=== PATIENT | male | born 1960 | race Caucasian/White ===

== ENCOUNTER 2016-11-15 20:26 | Emergency (ER) | payer BC ==
[2016-11-15 20:39] VITALS: BP 163/95
[2016-11-15] MEDS ORDERED: diphenhydrAMINE 50 MG Cap PO ONE (21:14)
[2016-11-15] MEDS ORDERED: Acetaminophen/oxyCODONE 325-5 MG Tab PO ONE (21:15)
[2016-11-15] MEDS ORDERED: Ibuprofen 600 MG Tab PO ONE (21:15)
[2016-11-15] MEDS ORDERED: Dexamethasone 2 MG Tab PO ONE (21:16)
--- NOTE | 2016-11-15 21:17 | EDM.PDOC ---
ED HPI GENERAL MEDICAL PROBLEM - General Chief Complaint: Bite:Animal, Insect Stated Complaint: BEE STING ON LIP Time Seen by Provider: 11/15/16 21:10 Source of Information: Reports: Patient History Limitations: Reports: No Limitations - History of Present Illness INITIAL COMMENTS - FREE TEXT/NARRATIVE: 56-year-old male presents the ED for evaluation of allergic reaction after being stung by a bee or wasp in his right upper lip. States the hymenoptera was inside a pop can and when he went to take a drink he was stung he believes multiple times in the upper lip. This would suggest a wasp versus a bee sting. Sting occurred approximately 2 hours prior to arrival he has no other signs or symptoms of allergic reaction such as trouble swallowing or breathing. He has no generalized itch itches localized to the upper lip which is markedly swollen. Onset: Today Onset Date: 11/15/16 Onset Time: 19:00 Duration: Hour(s): Location: Reports: Face Quality: Reports: Ache (Upper lip.), Pressure, Throbbing, Other Severity: Severe (Itching.) Improves with: Reports: None Worsens with: Reports: None Context: Denies: Activity, Exercise, Lifting, Sick Contact, Trauma, Other Associated Symptoms: Reports: No Other Symptoms Treatments [employer]: Reports: Other (see below) (None) Upper Lip Pain Score (Numeric/FACES): 6 - Related Data Allergies Allergy/AdvReac Type Severity Reaction Status Date / Time No Known Allergies Allergy Verified 11/15/16 20:37 Home Meds: Home Meds Blood Pressure Pill 11/15/16 [History] Past Medical History - Past Health History Medical/Surgical History: Denies Medical/Surgical History Cardiovascular History: Reports: Hypertension Social & Family History - Tobacco Use Smoking Status *Q: Current Every Day Smoker Years of Tobacco use: 30 Packs/Tins Daily: 1 ED ROS GENERAL - Review of Systems Review Of Systems: See Below Constitutional: Reports: No Symptoms HEENT: Reports: Other (Marked swelling and itching of his entire upper lip.) Respiratory: Reports: Shortness of Breath (Chronic cough from smoking.), Wheezing ( Exertion), Cough Cardiovascular: Reports: Blood Pressure Problem (Mild hypertension), Dyspnea on Exertion ( occasional wheezing chronically ) Endocrine: Reports: No Symptoms GI/Abdominal: Reports: No Symptoms : Reports: Frequency, Other Musculoskeletal: Reports: Back Pain Skin: Reports: No Symptoms Neurological: Reports: No Symptoms (Occasional problems with low back pain) Psychiatric: Reports: No Symptoms Hematologic/Lymphatic: Reports: No Symptoms ED EXAM, ANIMAL BITE - Physical Exam Exam: See Below Exam Limited By: No Limitations General Appearance: Alert, WD/WN, No Apparent Distress, Other Eye Exam: Bilateral Eye: Normal Inspection Throat/Mouth: Normal Inspection, Normal Lips, Normal Oropharynx, Other (Entire right upper lip is markedly swollen and edematous.) Head: Atraumatic, Normocephalic (Oropharynx is erythematous from cigarette smoking but no swelling of the uvula or soft palate it is evident.) Neck: Normal Inspection, Supple, Non-Tender, Full Range of Motion. No: Lymphadenopathy (L), Lymphadenopathy (R) Respiratory/Chest: No Respiratory Distress, No Accessory Muscle Use, Wheezing Cardiovascular: Normal Peripheral Pulses, Regular Rate, Rhythm, No Edema, No Gallop, No Murmur (Timoteo expiratory wheezing.) Course - Vital Signs Last Recorded V/S: Last Vital Signs Temp 36.4 C 11/15/16 20:37 Pulse 87 11/15/16 20:37 Resp 16 11/15/16 20:37 BP 163/95 H 11/15/16 20:37 Pulse Ox 95 11/15/16 20:37 - Radiology Interpretation Free Text/Narrative:: 56-year-old male presents the ED after being stung he believes multiple times by a bee or wasp in his upper lip. States he went to take a drink out of a pop can and the hymenoptera was inside the can. The fact that he was stung more than one suggests it was a wasp rather than a bee. At any rate he has a localized reaction to his right upper lip with it being markedly swollen and edematous. He has no signs or symptoms of systemic allergic response. Sting occurred approximately 2 hours prior to arrival. Plan Benadryl 50 Chester grams by mouth Percocet 1 tablet 5-25 mg by mouth with Motrin 600 mg by mouth and dexamethasone 10 mg by mouth 1 dose. Departure - Departure Time of Disposition: 21:23 Disposition: Home, Self-Care 01 Condition: Fair Clinical Impression: Sting from hornet, wasp, or bee Qualifiers: Encounter type: initial encounter Injury intent: accidental or unintentional Qualified Code(s): T63.451A - Toxic effect of venom of hornets, accidental ( unintentional), initial encounter; T63.441A - Toxic effect of venom of bees, accidental (unintentional), initial encounter; T63.461A - Toxic effect of venom of wasps, accidental (unintentional), initial encounter - Discharge Information Forms: ED Department Discharge Additional Instructions: Evaluation in the emergency room tonight in regards to hymenoptera sting to the upper lip. He appreciated that you're stung more than once which would suggest this was a wasp rather than a bee is a bee can only sting once and break off its stinger. Stingers were identified in the lip itself which is obviously swollen and painful and edematous from localized allergic response. You're therefore treated for inflammation and allergic reaction with Benadryl 50 Sylvain grams by mouth and dexamethasone 10 mg by mouth. Pain relief with Motrin 600 mg and Percocet 5/3/25 tablet by mouth. Expect the lip to gradually reduce in the swelling over the next 24-48 hours. May require Benadryl 50 mg every 6 hours if it continues to itch and it does help reduce the swelling as well.
[2016-11-15] MEDS ORDERED: Dexamethasone 4 MG/ML 5 ML MDV IV ONE (21:31)
[2016-11-15] MEDS ORDERED: Dexamethasone 10 MG/ML SDV ONE (21:32)
== END 2016-11-15 21:40 | disposition home or self-care (01) ==
LOC: JD.ED 20:26
DX: T63.451A Toxic effect of venom of hornets, accidental (unintentional), initial encounter (principal); T63.441A Toxic effect of venom of bees, accidental (unintentional), initial encounter; T63.461A Toxic effect of venom of wasps, accidental (unintentional), initial encounter; I10 Essential (primary) hypertension; F17.210 Nicotine dependence, cigarettes, uncomplicated
CPT/HCPCS: 99282; A9270; J1100

== ENCOUNTER 2018-05-21 09:15 | Emergency (ER) | payer OTHER, BC ==
[2018-05-21 09:32] VITALS: BP 166/94
[2018-05-21] MEDS ORDERED: Ondansetron 4 MG Tab.DIS PO ONE (10:47)
[2018-05-21] MEDS ORDERED: HYDROmorphone 1 MG/ML Syringe IM ONE (10:47)
--- NOTE | 2018-05-21 10:51 | EDM.PDOC ---
ED HPI GENERAL MEDICAL PROBLEM - General Chief Complaint: Abdominal Pain Stated Complaint: HERNIA PAIN Time Seen by Provider: 05/21/18 10:20 Source of Information: Reports: Patient, RN Notes Reviewed History Limitations: Reports: No Limitations - History of Present Illness INITIAL COMMENTS - FREE TEXT/NARRATIVE: Patient is a 57-year-old male who presents to the ED for evaluation of abdominal pain. He states that he was supposed to have a hernia repair done by [facility] surgery on Thursday but [employer] hadn't finish the paperwork or approved yet so it has been delayed. The patient states that he developed this hernia due to a work-related injury, this injury was on April 08. He has pain mostly with this but today he said he woke up this morning with increased pain starts at his umbilicus and radiates towards his left side. He states that he feels nauseous and maybe has had some fevers/chills. He states that he hasn't had a good bowel movement in 3 days. He states that this pain is more of a burning type sensation he would rate this at 8 or 9 out of 10. He states that he has been trying Tylenol and ibuprofen but this has not been providing much pain relief. Lower Abdomen Pain Score (Numeric/FACES): 9 - Related Data Allergies Allergy/AdvReac Type Severity Reaction Status Date / Time No Known Allergies Allergy Verified 05/21/18 09:27 Home Meds: Home Meds Blood Pressure Pill 11/15/16 [History] Acetaminophen/HYDROcodone [[place] 325-5 MG] 1 tab PO Q6H PRN #28 tablet 05/21/18 [Rx] Past Medical History - Past Health History Medical/Surgical History: Denies Medical/Surgical History Cardiovascular History: Reports: High Cholesterol, Hypertension Other Gastrointestinal History: Hernia, Abdominal Musculoskeletal History: Reports: Fracture Other Musculoskeletal History: L foot - Past Surgical History Musculoskeletal Surgical History: Reports: ORIF, Other (See Below) Other Musculoskeletal Surgeries/Procedures:: L foot Social & Family History - Tobacco Use Smoking Status *Q: Current Every Day Smoker Years of Tobacco use: 30 Packs/Tins Daily: 1 Second Hand Smoke Exposure: Yes - Caffeine Use Caffeine Use: Reports: Coffee - Alcohol Use Days Per Week of Alcohol Use: 2 Number of Drinks Per Day: 2 Total Drinks Per Week: 4 - Recreational Drug Use Recreational Drug Use: No ED ROS GENERAL - Review of Systems Review Of Systems: See Below Constitutional: Reports: Fever, Chills HEENT: Reports: No Symptoms Respiratory: Reports: No Symptoms Cardiovascular: Reports: No Symptoms Endocrine: Reports: No Symptoms GI/Abdominal: Reports: Abdominal Pain (see HPI), Constipation (Slight), Nausea. Denies: Diarrhea, Vomiting : Reports: No Symptoms Musculoskeletal: Reports: No Symptoms Skin: Reports: No Symptoms Neurological: Reports: No Symptoms Psychiatric: Reports: No Symptoms Hematologic/Lymphatic: Reports: No Symptoms Immunologic: Reports: No Symptoms ED EXAM, GI/ABD - Physical Exam Exam: See Below Exam Limited By: No Limitations General Appearance: Alert, WD/WN, Mild Distress (Patient appears to be mild pain.) Ears: Normal External Exam Nose: Normal Inspection Throat/Mouth: Normal Inspection Head: Atraumatic, Normocephalic Neck: Normal Inspection Respiratory/Chest: No Respiratory Distress, Lungs Clear, Normal Breath Sounds, No Accessory Muscle Use, Chest Non-Tender Cardiovascular: Normal Peripheral Pulses, Regular Rate, Rhythm, No Murmur GI/Abdominal Exam: Normal Bowel Sounds, Soft, No Distention, Tender (Mainly around the umbilicus, just inferior and to the right side. But he has tenderness in both quadrants of the lower abdomen.), Hernia (Umbilical hernia appreciated.). No: Rigid Back Exam: Normal Inspection Extremities: Normal Inspection Neurological: Alert, Oriented, Normal Cognition, No Motor/Sensory Deficits Psychiatric: Normal Affect, Normal Mood Skin Exam: Warm, Dry, Intact, Normal Color, No Rash Course - Vital Signs Last Recorded V/S: Last Vital Signs Temp 97.3 F 05/21/18 09:28 Pulse 58 L 05/21/18 09:28 Resp 20 05/21/18 09:28 BP 166/94 H 05/21/18 09:28 Pulse Ox 99 05/21/18 09:28 - Orders/Labs/Meds Meds: Medications Discontinued Medications Generic Name Dose Route Start Last Admin Trade Name Freq PRN Reason Stop Dose Admin Hydromorphone HCl 0.5 mg 05/21/18 10:47 05/21/18 10:57 Dilaudid IM 05/21/18 10:48 0.5 mg ONETIME ONE Administration Ondansetron HCl 4 mg 05/21/18 10:47 05/21/18 10:59 Zofran Odt PO 05/21/18 10:48 4 mg ONETIME ONE Administration - Re-Assessments/Exams Free Text/Narrative Re-Assessment/Exam: 05/21/18 11:35 Pt presents to the ED for the evaluation of a painful hernia. I did order 0.5mg IM dilaudid for pain relief, and Abdomen CT without contrast. CT is back and states that he has a small fat containing left inguinal hernia. Small fat- containing anterior abdominal wall hernia next to umbilicus. No strangulation or incarceration. Will d/c home with plan for him to get this repaired on an outpatient basis. Departure - Departure Time of Disposition: 11:37 Disposition: Home, Self-Care 01 Condition: Fair Clinical Impression: Abdominal pain Qualifiers: Abdominal location: lower abdomen, unspecified Qualified Code(s): R10.30 - Lower abdominal pain, unspecified - Discharge Information *PRESCRIPTION DRUG MONITORING PROGRAM REVIEWED*: No *COPY OF PRESCRIPTION DRUG MONITORING REPORT IN PATIENT MERLENE: No Prescriptions: Acetaminophen/HYDROcodone [[place] 325-5 MG] 1 tab PO Q6H PRN #28 tablet PRN Reason: Pain Instructions: Abdominal Pain, Adult, [id number] Referrals: Kaia Hudson [facility] [Primary Care Provider] - Forms: ED Department Discharge Additional Instructions: You have been evaluated in the ED for your lower abdominal pain Your CT demonstrated no acute strangulation or incarceration of your hernia. You have been given a narcotic pain killer in the ED today, you will need a feeder driver to take you home. You may take tylenol 500 mg or ibuprofen 600mg q6 hrs for pain relief. Please do so until you have a tolerable level of pain with activity. Do not exceed 4000mg tylenol in one day. Do not exceed 3200mg ibuprofen in one day. Please take the [place] 5/325, 1 tab by mouth every 6 hours as needed for pain relief. Recommend that you start a stool softener, because opioid pain medications can cause constipation. Recommend that you be seen by the surgeon that was to do your surgery for re- evaluation and urgent outpatient hernia repair. Please return to ED if your symptoms should change or worsen.
--- NOTE | 2018-05-21 11:34 | CT ---
CT abdomen and pelvis Technique: Multiple axial sections were obtained from above the dome of the diaphragm inferiorly through the pubic symphysis. Intravenous and oral contrast not utilized. Findings: Small fat-containing left inguinal hernia is seen. Small fat-containing anterior abdominal wall hernia is seen next to the umbilicus. Visualized lung bases are clear. Noncontrast appearance of the liver and spleen appears within normal limits. Adrenal gland on the right side shows a small low-density nodule most likely due to small adrenal adenoma measuring approximately 1.4 cm. Left adrenal gland also shows a small nodule measuring about 1.3 cm which is also most likely due to small adrenal adenoma. Kidneys show no abnormal calcifications. No hydronephrosis is seen. Pancreas is within normal limits. Gallbladder contains no calcified gallstones. Distal aorta shows aneurysmal dilatation measuring about 3.9 cm in size. Diffuse ectasia is seen of other portions of the abdominal aorta. 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 No pelvic mass or adenopathy is seen. No free fluid or inflammatory change is noted. Minimal diverticuli are seen without diverticulitis. Bone window settings were reviewed which shows diffuse degenerative change within the spine. Impression: 1. Small fat-containing left inguinal hernia. Small fat-containing anterior abdominal wall hernia next to the umbilicus. 2. 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 No previous imaging studies are available to determine stability of these aneurysms. 3. Other incidental findings. Diagnostic code #3
== END 2018-05-21 11:53 | disposition home or self-care (01) ==
LOC: JD.ED 09:15
DX: R10.30 Lower abdominal pain, unspecified (principal); K40.90 Unilateral inguinal hernia, without obstruction or gangrene, not specified as recurrent; I10 Essential (primary) hypertension; F17.210 Nicotine dependence, cigarettes, uncomplicated
CPT/HCPCS: 74176; 96372; 99283; A9270; J1170